=== PATIENT | male | born 1985 | race Caucasian/White ===

== ENCOUNTER 2016-09-02 11:43 | Emergency (ER) | payer OTHER ==
[~2016-09-02] VITALS: Ht 167.6 cm; Wt 79.2 kg
[2016-09-02] MEDS ORDERED: ALBU17IN2 INH (11:52)
[2016-09-02] MEDS ORDERED: ADVA115A INH (11:52)
[2016-09-02] MEDS ORDERED: CLAR10CA3 PO (11:52)
[2016-09-02] MEDS ORDERED: MONT10TA2 PO (11:52)
[2016-09-02] MEDS ORDERED: IPRATROPIUM 0.5MG/ALBUTEROL 2.5MG INH SOL UD 3ML (DUONEB)(J7620) NEB ONE (13:15)
[2016-09-02] MEDS ORDERED: predniSONE 20 MG TAB PO ONE (13:15)
[2016-09-02 13:48] VITALS: BP 121/71
[2016-09-02] MEDS ORDERED: PRED20TA PO (13:52)
--- NOTE | 2016-09-03 08:00 | REP ---
Chest x-ray: Two views. History: Cough and congestion. Comparison study: No comparison study. Findings: The lungs are well inflated and free of infiltrate. The pleural angles are sharp. The heart size is normal. Pulmonary vasculature is not increased. No significant bony abnormality is seen. Impression: Negative chest x-ray. Signed by Ernst Terrell MD 09/03/2016 09:00 A
== END 2016-09-02 13:59 | disposition home or self-care (01) ==
LOC: M ED 12:40
DX: J45.901 Unspecified asthma with (acute) exacerbation (principal); Z79.899 Other long term (current) drug therapy

== ENCOUNTER 2016-09-15 15:15 | Inpatient (IN) | payer OTHER ==
[~2016-09-15] VITALS: Ht 167.6 cm; Wt 82.1 kg
[~2016-09-15 15:15] MED LIST: ADVA115A INH; ALBU17IN2 INH; CLAR10CA3 PO; MONT10TA2 PO; PRED20TA PO
[2016-09-15] MEDS: NS 1,000 ML IV SCH ×2 (16:00→20:25)
[2016-09-15 16:52] LABS: MEAN CORPUSCULAR HEMOGLOBIN 29.5 pg (27.0-33.0); MEAN CORPUSCULAR HGB CONC 33.7 g/dl (32.0-36.5); MEAN CORPUSCULAR VOLUME 87.4 fl (80.0-96.0); RED CELL DISTRIBUTION WIDTH 12.3 % (11.5-14.5)
[2016-09-15 17:15] LABS: ANION GAP 4 MEQ/L (8-16); BLOOD UREA NITROGEN 14 MG/DL (7-18); CALCIUM LEVEL 9.1 MG/DL (8.5-10.1); CARBON DIOXIDE LEVEL 29 MEQ/L (21-32); CHLORIDE LEVEL 111 MEQ/L (98-107); GLOMERULAR FILTRATION RATE > 60.0 (>60); GLUCOSE, FASTING 49 MG/DL (70-105); POTASSIUM SERUM 4.1 MEQ/L (3.5-5.1); SODIUM LEVEL 144 MEQ/L (136-145)
[2016-09-15] MEDS ORDERED: ISOVUE-370 76% 100ML VIAL (Q9967) As Ordered ONE (17:23)
--- NOTE | 2016-09-15 18:14 | REP ---
Clinical: Shortness of breath . Technique: Axial contrast enhanced images from the thoracic inlet to the upper abdomen using 100 ml Isovue 370 intravenous contrast material with multiplanar re-formations. Findings: Satisfactory enhancement of the pulmonary vasculature is achieved and extensive pulmonary emboli are identified in the right and left main pulmonary arteries extending into the bilateral lower lobe and left upper lobe pulmonary arteries. The lung johnson are relatively clear and without consolidation, atelectasis, pleural effusion. Tracheobronchial tree is patent. No pneumothorax. No adenopathy. Thoracic aorta and heart/pericardium are normal. Surrounding musculoskeletal structures are intact. Impression: Severe, extensive bilateral pulmonary emboli filling of the right and left main pulmonary arteries and extending into the bilateral lower lobe and left upper lobe pulmonary arteries. No pulmonary parenchymal consolidation/atelectasis or pleural effusion. Findings were immediately discussed with Venecia Coyle in the emergency department. Signed by Mack Tai MD 09/15/2016 06:07 P
[2016-09-15 19:02] LABS: INR 1.06
[2016-09-15] MEDS ORDERED: HEPARIN DRIP 25,000 UNITS in APPROPRIATE DILUENT 1 EA IV SCH (19:28)
[2016-09-15] MEDS ORDERED: HEPARIN SOD (PORCINE) 5000 UNITS/ML VIAL IV ONE (19:30)
[2016-09-15] MEDS ORDERED: FLON1SPR (20:34)
--- NOTE | 2016-09-15 21:00 | REPUSA ---
Clinical history: Pain, swelling. Findings: The right common femoral, superficial femoral, popliteal, and other deep venous structures compress normally and demonstrate normal color Doppler flow. Normal venous waveforms with augmentatio n are seen. On the left, the common femoral superficial femoral veins compress normally. There is echogenic nonoc clusive thrombus in the left popliteal vein. Normal venous waveforms are otherwise demonstrated. Impression: 1. Nonocclusive deep vein thrombosis of the left popliteal vein. 2. No evidence of deep vein thrombosis in the right femoral popliteal venous system.
--- NOTE | 2016-09-15 21:10 | HPEPDOC ---
General Date of Admission Sep 15, 2016 at 19:38 Chief Complaint The patient is a 31-year-old male admitted with a reason for visit of Acute Pulmonary Embolism. 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 [place] noted to have a O2 sat. of 90% with HR in the 160's, he was immediately transferred to [facility]. On exam he denied being currently SOB and appeared comfortable, non-labored, he stated he felt pretty well aside from a non-productive cough. He denied recent changes in bowel or urinary habits, denied fevers nor n/v. He has no other active complaints. The pt. denied a history of personal blood clots but admits to having a cousin who recently due to a "lung clot", he is not taking any exogenous hormones nor does he have a history of cancer, denies any prolonged periods of immobility recently. Home Medications Scheduled (Flonase Allergy Relief) 50 Mcg/Act Spr, 50 MCG NA DAILY, (Reported) Albuterol Sulfate (Proventil Hfa) 167 Puff/6.7 Gm Aers, 2 PUFFS INH DAILY, ( Reported) Loratadine (Claritin) 10 Mg Cap, 10 MG PO DAILY, (Reported) Montelukast Sodium (Montelukast Sodium) 10 Mg Tab, 10 MG PO DAILY, (Reported) Salmeterol/Fluticasone (Advair Hfa 115-21 Mcg/Act) 1 Aer Aer, 2 PUFF INH QAM, ( Reported) USING ONLY ONCE A DAY ALTHOUGH WRITTEN FOR BID Allergies Coded Allergies: No Known Allergies (Unverified , 09/02/16) Past Medical History Medical History no known medical hx Family History Significant Family History: No pertinent family hx Social History * Smoker: Denies Alcohol: Denies Drugs: denies Psychosocial History: No 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 Review of Symptoms Constitutional: Denies: Chills, Fever Eyes: Denies: Pain, Vision change ENT: Denies: Head Aches Skin: Denies: Rash Pulmonary: Reports: Dyspnea, Cough Cardiovascular: Denies: Chest Pain, Palpitations, Orthopnea, Edema Gastrointestinal: Denies: Nausea, Vomiting Genitourinary: Denies: Dysuria, Frequency Hematologic: Denies: Bruising, Bleeding Excessively Musculoskeletal: Denies: Neck Pain Neurological: Denies: Weakness Psych: Reports: Mood Normal Physical Examination General Exam: Positive: Alert, Cooperative, No Acute Distress Eye Exam: Positive: Conjunctiva & lids normal ENT Exam: Positive: Atraumatic Neck Exam: Positive: Supple Chest Exam: Positive: Clear to auscultation, Normal air movement, Negative: Rales, Rhonchi, Wheezing Heart Exam: Positive: Tachycardic, Normal S1, Normal S2 (rate around 107 BPM), Negative: Gallops, Murmurs Telemetry: Positive: No significant arrhythmia Abdomen Exam: Positive: Normal bowel sounds, Soft, Negative: Tenderness, Hepatospenomegaly, Mass Extremity Exam: Negative: Cyanosis, Edema Psych Exam: Positive: Mental status NL, Oriented x 3 Vital Signs Vital Signs Date Time Temp Pulse Resp B/P (MAP) Pulse Ox O2 Delivery O2 Flow Rate FiO2 09/15/16 20:15 98.0 102 20 108/71 (83) 97 Room Air Laboratory Data Labs 24H Laboratory Tests 2 09/15/16 16:23: Prothrombin Time 13.9, Prothromb Time International Ratio 1.06, Activated Partial Thromboplast Time 25.6L, Anion Gap 4L, Glomerular Filtration Rate > 60.0 , Blood Urea Nitrogen 14, Creatinine 1.10, Sodium Level 144, Potassium Level 4.1 , Chloride Level 111H, Carbon Dioxide Level 29, Calcium Level 9.1 09/15/16 20:01: 09/15/16 20:02: CBC/BMP Laboratory Tests 09/15/16 16:23 Red Blood Count 5.61, Mean Corpuscular Volume 87.4, Mean Corpuscular Hemoglobin 29.5, Mean Corpuscular Hemoglobin Concent 33.7, Red Cell Distribution Width 12.3 , Calcium Level 9.1 Problems (1) Pulmonary emboli Status: Acute Response to Treatment: Stable Problem Text: CTA shows extensive b/l PE filling of the right and left main pulmonary arteries and extending in the b/l lower lobe and left upper lobe pulmonary arteries, no pulmonary parenchymal consolidation/atelectasis of pleural effusion Heparin bolus and IV drip initiated Will discuss with pt. preference of Coumadin vs oral AG, to begin tomorrow. Pt. hemodynamically stable, slight tachycardia at 107 BPM when being examined, denied SOB will hold of O2 orders for now, saturation 95% on room air (2) DVT prophylaxis Status: Acute Response to Treatment: Stable Problem Text: SCD TEDS Plan / VTE VTE Prophylaxis Ordered?: Yes GME ATTESTATION GME ATTESTATION My preceptor for this patient encounter was physically present in the building during the encounter and was fully available. As needed, all aspects of the patient interview, examination, medical decision making process, and medical care plan development were reviewed and approved by the preceptor. Preceptor is aware and concurs with the plan as stated in the body of this note and will attest to such by his/her cosignature. 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 He states it is worse with ambulation and has been getting progressively worse since that time. He states he came to our facility a couple weeks ago and [place] and was diagnosed with asthma and an URI which he received steroids and albuterol for, he states these interventions "kind of helped" but he has still felt SOB and when he was seen in our facility a couple weeks ago, he claims he also had some chest pressure. He denied any fever, nausea or vomiting, nor change in bowel or urinary habits. He states he currently feels fine and is not SOB. He has no other active complaints. RAINER SIMS DO Sep 15, 2016 21:10
[2016-09-15 22:45] VITALS: BP 126/76
[2016-09-15] MEDS ORDERED: HEPARIN SOD (PORCINE) 5000 UNITS/ML VIAL IV PRN (23:15)
[2016-09-15 23:41] LABS: MEAN CORPUSCULAR HEMOGLOBIN 29.2 pg (27.0-33.0); MEAN CORPUSCULAR VOLUME 88.6 fl (80.0-96.0); RED CELL DISTRIBUTION WIDTH 12.6 % (11.5-14.5); WHITE BLOOD COUNT 8.9 K/mm3 (4.0-10.0)
[2016-09-16 04:00] VITALS: BP 123/71
[2016-09-16 05:29] LABS: BASO % 0.5 % (0.0-1.0); EOS # 0.1 K/mm3 (0.0-0.50); EOS % 1.7 % (0.0-3.0); LARGE UNSTAINED CELL # 0.2 K/mm3 (0.0-0.4); LARGE UNSTAINED CELL % 1.9 % (0.0-4.0); LYMPH # 4.7 K/mm3 (1.5-4.5); LYMPH % 57.4 % (24.0-44.0); MEAN CORPUSCULAR HEMOGLOBIN 29.8 pg (27.0-33.0); MEAN CORPUSCULAR HGB CONC 33.7 g/dl (32.0-36.5); MEAN CORPUSCULAR VOLUME 88.5 fl (80.0-96.0); MONO # 0.4 K/mm3 (0.0-0.8); MONO % 4.5 % (0.0-5.0); NEUTROPHILS # 2.8 K/mm3 (1.8-7.7); PLATELET COUNT, AUTOMATED 164 k/mm3 (150-450); RED CELL DISTRIBUTION WIDTH 12.3 % (11.5-14.5); WHITE BLOOD COUNT 8.2 K/mm3 (4.0-10.0)
[2016-09-16 05:51] LABS: ANION GAP 6 MEQ/L (8-16); BLOOD UREA NITROGEN 11 MG/DL (7-18); CALCIUM LEVEL 8.1 MG/DL (8.5-10.1); CARBON DIOXIDE LEVEL 26 MEQ/L (21-32); CHLORIDE LEVEL 109 MEQ/L (98-107); CREATININE FOR GFR 0.96 MG/DL (0.70-1.30); GLOMERULAR FILTRATION RATE > 60.0 (>60); GLUCOSE, FASTING 94 MG/DL (70-105); POTASSIUM SERUM 4.2 MEQ/L (3.5-5.1); SODIUM LEVEL 141 MEQ/L (136-145)
[2016-09-16 08:00] VITALS: BP 109/79
--- NOTE | 2016-09-16 10:13 | IPNPDOC ---
Date Seen The patient was seen on 09/16/16. Progress Note SUBJECTIVE: Patient tells me that he is anxious regarding his health he is nervous acute distress reported that this was not caught sooner. He is also worried that his medical condition with place him on medical board with the [employer]. He denies shortness of breath lightheadedness dizziness nausea vomiting or diarrhea at rest OBJECTIVE PHYSICAL EXAMINATION: VITAL SIGNS: Please see below. GENERAL: Well-built muscular young man lying in bed at 30 angle he does not appear to be in any acute distress whatsoever HEENT: Pupils equally round reactive to light is moist mucous membranes elevation central venous pressure CARDIOVASCULAR: S1-S2 appears to be irregular mildly bradycardic noticed heart sounds appreciated. RESPIRATORY: Clear to auscultation bilaterally. No pleuritic pain with deep inspiration ABDOMINAL: Bowel sounds are present abdomen soft and nontender EXTREMITIES: Cyanosis or edema LABORATORY DATA: Please see below. MICROBIOLOGY: Please see below. IMAGING: CT angiography of the chest:Severe, extensive bilateral pulmonary emboli filling of the right and left main pulmonary arteries and extending into the bilateral lower lobe and left upper lobe pulmonary arteries. No pulmonary parenchymal consolidation/atelectasis or pleural effusion. Duplex of the lower extremity:1. Nonocclusive deep vein thrombosis of the left popliteal vein. 2. No evidence of deep vein thrombosis in the right femoral popliteal venous system Echocardiogram: Ordered and pending. DVT prophylaxis ordered?: Heparin drip ASSESSMENT AND PLAN: This is a 31-year-old man with extensive bilateral PE and DVT. PROBLEMS: 1. Extensive bilateral PE and DVT: The patient is started on a heparin drip on hypercoagulable workup was sent prior to initiation of this patient is hemodynamically stable he is not hypoxic or tachycardic at rest we'll continue him on heparin drip he may be better served by new her oral anticoagulant and transition of this in the near future. 2. Heart block: This is a young man who while on telemetry was noted to have 2 on transmitted P waves and then third was shortly thereafter he was asymptomatic when he was bradycardic with a positive greater than 3 seconds[address] I have asked Dr. Kinsey see the patient consultation and ordered echocardiogram will continue to monitor blood telemetry. The patient's father is reportedly a physician antiplateletwith him later on today when February otherwise me his phone number. DISPOSITION: We'll continue monitor on telemetry . [facility], [facility]&O[facility]ital Signs/I&O Vital Signs Date Time Temp Pulse Resp B/P (MAP) Pulse Ox O2 Delivery O2 Flow Rate FiO2 09/16/16 08:00 97.5 77 17 109/79 (89) 94 Room Air I&O- Last 24 Hours up to 6 AM 09/16/16 05:59 Intake Total 286.5 ml Balance 286.5 ml Laboratory Data 24H LABS Laboratory Tests 2 09/15/16 16:23: Prothrombin Time 13.9, Prothromb Time International Ratio 1.06, Activated Partial Thromboplast Time 25.6L, Anion Gap 4L, Glomerular Filtration Rate > 60.0 , Blood Urea Nitrogen 14, Creatinine 1.10, Sodium Level 144, Potassium Level 4.1 , Chloride Level 111H, Carbon Dioxide Level 29, Calcium Level 9.1 09/15/16 20:01: 09/15/16 20:02: 09/15/16 23:33: Activated Partial Thromboplast Time 95.8H, Total Creatine Kinase 273, Creatine Kinase MB 2.3, Creatine Kinase MB Relative Index 0.84, Troponin I 0.03 09/16/16 02:27: Activated Partial Thromboplast Time 84.2H 09/16/16 05:05: White Blood Count 8.2, Red Blood Count 5.33, Hemoglobin 15.9, Hematocrit 47.2, Mean Corpuscular Volume 88.5, Mean Corpuscular Hemoglobin 29.8, Mean Corpuscular Hemoglobin Concent 33.7, Red Cell Distribution Width 12.3, Platelet Count 164, Neutrophils (%) (Auto) 34.0L, Lymphocytes (%) (Auto) 57.4H, Monocytes (%) (Auto) 4.5, Eosinophils (%) (Auto) 1.7, Basophils (%) (Auto) 0.5, Neutrophils # (Auto) 2.8, Lymphocytes # (Auto) 4.7H, Monocytes # (Auto) 0.4, Eosinophils # (Auto) 0.1, Basophils # (Auto) 0.0, Large Unclassified Cells % 1.9 , Large Unclassified Cells # 0.2, Anion Gap 6L, Glomerular Filtration Rate > 60.0, Blood Urea Nitrogen 11, Creatinine 0.96, Sodium Level 141, Potassium Level 4.2, Chloride Level 109H, Carbon Dioxide Level 26, Calcium Level 8.1L, Total Creatine Kinase 250, Creatine Kinase MB 2.1, Creatine Kinase MB Relative Index 0.84, Troponin I 0.03 09/16/16 08:44: Activated Partial Thromboplast Time 84.8H CBC/BMP Laboratory Tests 09/15/16 16:23 Red Blood Count 5.61, Mean Corpuscular Volume 87.4, Mean Corpuscular Hemoglobin 29.5, Mean Corpuscular Hemoglobin Concent 33.7, Red Cell Distribution Width 12.3 , Calcium Level 9.1 09/15/16 23:34 Red Blood Count 4.90, Mean Corpuscular Volume 88.6, Mean Corpuscular Hemoglobin 29.2, Mean Corpuscular Hemoglobin Concent 33.0, Red Cell Distribution Width 12.6 09/16/16 05:05 Red Blood Count 5.33, Mean Corpuscular Volume 88.5, Mean Corpuscular Hemoglobin 29.8, Mean Corpuscular Hemoglobin Concent 33.7, Red Cell Distribution Width 12.3 , Calcium Level 8.1 L, Neutrophils (%) (Auto) 34.0 L, Lymphocytes (%) (Auto) 57.4 H, Monocytes (%) (Auto) 4.5, Eosinophils (%) (Auto) 1.7, Basophils (%) ( Auto) 0.5, Neutrophils # (Auto) 2.8, Lymphocytes # (Auto) 4.7 H, Monocytes # ( Auto) 0.4, Eosinophils # (Auto) 0.1, Basophils # (Auto) 0.0, Total Creatine Kinase 250 Microbiology Microbiology 09/16/16 Stool Occult Blood (CARLA), Received Pending KASIA ESPINAL MD Sep 16, 2016 10:13
[2016-09-16 12:00] VITALS: BP 128/81
--- NOTE | 2016-09-16 13:05 | CR ---
DATE OF CONSULTATION: 09/16/2016 Dr. Silvestre has asked me to see Mr. Abarca for pulmonary embolism and transient AV block. 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 He reports complaints of dyspnea on exertion since approximately April 2016. He was initially diagnosed with asthma and treated accordingly. He tells me that his condition has improved, and he actually felt almost back to normal but then in approximately July 2016, he started to be short of breath again. He was at his baseline in excellent physical shape but all the sudden, he started having problems climbing two or three flights of stairs. He looked for attention again and was tentatively diagnosed with asthma. He was prescribed some bronchodilators and prednisone taper and again, his condition transiently improved. But then he got more short of breath again and he eventually came to emergency room yesterday after he was evaluated on post and was found to be tachycardiac and hypoxic. CT angiography of the chest revealed extensive bilateral pulmonary emboli with dilatation of pulmonary arteries. He was started on intravenous (IV) heparin and admitted for further care. Overnight, while monitored on telemetry, he had episodes of AV block. He had several nonconducted P-waves with overall longest pause slightly over 3 seconds. He was asymptomatic and sleeping during the occurrence. He had one episode like that and then he had several episodes when he had 2:1 block that lasted only two cardiac cycles each. This morning he tells me he feels comfortable in bed, as long as he does not do anything has no symptoms. He has had nonproductive cough and initially in April, he remembers that he had burning retrosternal chest discomfort but has not had any similar symptoms lately. He denies any syncope or near syncope. There has been no recent injury, immobilization or prolonged travel. He does believe that he has several episodes of what looked like respiratory infection but nothing unusual. OUTPATIENT MEDICATIONS: He takes several medications for asthma, specifically albuterol, Flonase, loratadine, montelukast and Advair. SOCIAL HISTORY: The patient is active duty for over 4 years. He is originally from [place] but has lived in the [place] for many years. He never smoked. Does not drink and denies any drug use. FAMILY HISTORY: Father has type 2 diabetes. Mother has been healthy. One of his maternal cousins from pulmonary emboli. REVIEW OF SYSTEMS: He denies any recent fever, chills, nausea, vomiting, diarrhea. No history of bleeding problems. He has had mostly nonproductive cough, shortness of breath as per history of present illness. No recent chest pain, syncope. He was told that he probably has sleep apnea but in the past refused evaluation. No genitourinary symptoms. No peripheral edema. No skin lesions. The rest of review of system is negative. LABORATORY: CBC is normal. Basic metabolic panel is also normal. He had two sets of cardiac enzymes that are normal. PTT has been in therapeutic range since yesterday evening. CT angiography of the chest as per history of present illness. ECG from yesterday at 2339 at night reveals sinus rhythm with ventricular rate 79 beats per minute. There are small Q-waves inferiorly with ST elevation approximately 1 mm in leads II, III and aVF and there are T-wave inversions in leads V1, V2. There are also nonspecific repolarization abnormalities in leads V3 to V6. ASSESSMENT AND PLAN: Mr. Abarca is a 31-year-old active duty who has had symptoms of principally exertional dyspnea since April and now has evidence for massive bilateral pulmonary embolism. Last night, he had an episode of transient AV block, likely related to the strain from pulmonary embolism, even though I would also consider possibility of concomitant sleep apnea. Currently, I will obtain followup ECG. Will obtain an echocardiogram to get an idea how is his pulmonary artery pressure and strain on the right ventricle. Finally, I spoke with the patient that it is expected that he will spend at least several days in the hospital before he can be discharged. At this point, I would continue IV heparin and when we see improvement in hemodynamics, we will transition him to one of the novel anticoagulants (NOACs). PREMA
--- NOTE | 2016-09-16 13:22 | ECHO ---
DATE OF STUDY: 09/16/2016 TWO-DIMENSIONAL ECHOCARDIOGRAM REFERRING PHYSICIAN: Dr. Silvestre INDICATION: Pulmonary embolism, cardiac dysrhythmia. The patient measures 66 inches and weighs 182 pounds. DIMENSIONS: IVS 1.1 LV 3.9 LVPW 1.2 LA 3.2 Aorta 3.6 Ascending aorta 3.2. RV at the level of aortic valve from parasternal long chamber view 3.7 cm RV at the base from apical four-chamber view 4.5 cm LV systolic 2.6cm Pulmonary artery at the level of pulmonic valve 3.1 cm. FINDINGS: This study is of good technical quality. The patient is in sinus rhythm. Left ventricle is of normal size and contractility with estimated EF approximately 65%. There is a D shape to interventricular septum in systole as well as in diastole indicative of right ventricular volume and pressure overload. All four cardiac valves are reasonably well seen and appear normal. Right ventricle is dilated and hypokinetic. Both atria appear grossly normal. No pericardial effusion is noted. Inferior vena cava is dilated and there is no appreciable collapse with respiration indicative of high central venous pressure. Aortic root, aortic arch and visualized segment of abdominal aorta appear normal. Doppler interrogation reveals no aortic stenosis or insufficiency. There is trace mitral insufficiency and trace tricuspid insufficiency. Calculated pulmonary artery pressure is at least in high 40s low 50s which would indicate moderate pulmonary hypertension, but the quality of TR jet is poor and I suspect that pulmonary artery pressure is even higher. Pulmonic valve is functionally competent. Mitral inflow pattern and tissue Doppler imaging of mitral annulus reveal normal diastolic function of left ventricle. CONCLUSIONS: 1. Study is of good technical quality. 2. Normal LV size with preserved LV systolic function and preserved diastolic function. 3. Dilated hypokinetic right ventricle. 4. No significant valvular disease. 5. High central venous pressure. 6. At least moderate and probably higher pulmonary hypertension. COMMENT: SBE prophylaxis is not recommended. MTDD
--- NOTE | 2016-09-16 14:51 | ECGEPIP ---
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
--- NOTE | 2016-09-16 14:56 | ECGEPIP ---
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
[2016-09-16 16:00] VITALS: BP 128/84
[2016-09-16] MEDS ORDERED: SLF 3 ML SYR IV PRN (16:00)
[2016-09-16] MEDS ORDERED: ACETAMINOPHEN TAB 650MG DOSE (2X325MG) PO PRN (18:45)
[2016-09-16 20:00] VITALS: BP 134/77
[2016-09-16] MEDS: HEPARIN DRIP 25,000 UNITS in APPROPRIATE DILUENT 1 EA IV SCH (20:41)
[2016-09-16] MEDS: SLF 3 ML SYR IV SCH (20:43)
[2016-09-17] VITALS (7 sets, daily range): BP systolic 114–131; BP diastolic 72–83
[2016-09-17] MEDS: SLF 3 ML SYR IV SCH ×3 (05:24→21:58)
[2016-09-17 06:08] LABS: BASO % 0.7 % (0.0-1.0); EOS # 0.2 K/mm3 (0.0-0.50); EOS % 2.1 % (0.0-3.0); LARGE UNSTAINED CELL # 0.1 K/mm3 (0.0-0.4); LARGE UNSTAINED CELL % 1.6 % (0.0-4.0); LYMPH # 4.4 K/mm3 (1.5-4.5); MEAN CORPUSCULAR HEMOGLOBIN 30.1 pg (27.0-33.0); MEAN CORPUSCULAR HGB CONC 34.3 g/dl (32.0-36.5); MEAN CORPUSCULAR VOLUME 87.7 fl (80.0-96.0); MONO # 0.4 K/mm3 (0.0-0.8); NEUTROPHILS # 2.5 K/mm3 (1.8-7.7); NEUTROPHILS % 33.7 % (36.0-66.0); PLATELET COUNT, AUTOMATED 163 k/mm3 (150-450); RED CELL DISTRIBUTION WIDTH 12.3 % (11.5-14.5); WHITE BLOOD COUNT 7.5 K/mm3 (4.0-10.0)
[2016-09-17 06:13] LABS: ANION GAP 6 MEQ/L (8-16); BLOOD UREA NITROGEN 13 MG/DL (7-18); CALCIUM LEVEL 8.9 MG/DL (8.5-10.1); CARBON DIOXIDE LEVEL 28 MEQ/L (21-32); CHLORIDE LEVEL 105 MEQ/L (98-107); CREATININE FOR GFR 0.98 MG/DL (0.70-1.30); GLOMERULAR FILTRATION RATE > 60.0 (>60); GLUCOSE, FASTING 90 MG/DL (70-105); SODIUM LEVEL 139 MEQ/L (136-145)
--- NOTE | 2016-09-17 10:41 | IPNPDOC ---
Date Seen The patient was seen on 09/17/16. Progress Note SUBJECTIVE: Patient tells me that he is feeling beter today, and that he was able to walk yesterday evening and did have the same shortness of breath which he came in with. He denies other complaints, but continues to worry about his ability to stay in the which is what he wants to do very much despite any medical illnesses. OBJECTIVE PHYSICAL EXAMINATION: VITAL SIGNS: Please see below. GENERAL: Well-built muscular young sitting up in bed at 30 angle he does not appear to be in any acute distress whatsoever HEENT: Pupils equally round reactive to light is moist mucous membranes elevation central venous pressure CARDIOVASCULAR: S1-S2 appears to be regularno other heart sounds appreciated. RESPIRATORY: Clear to auscultation bilaterally. No pleuritic pain with deep inspiration ABDOMINAL: Bowel sounds are present abdomen soft and nontender EXTREMITIES: Cyanosis or edema LABORATORY DATA: Please see below. MICROBIOLOGY: Please see below. IMAGING: CT angiography of the chest:Severe, extensive bilateral pulmonary emboli filling of the right and left main pulmonary arteries and extending into the bilateral lower lobe and left upper lobe pulmonary arteries. No pulmonary parenchymal consolidation/atelectasis or pleural effusion. Duplex of the lower extremity:1. Nonocclusive deep vein thrombosis of the left popliteal vein. 2. No evidence of deep vein thrombosis in the right femoral popliteal venous system Echocardiogram: 1. Study is of good technical quality. 2. Normal LV size with preserved LV systolic function and preserved diastolic function. 3. Dilated hypokinetic right ventricle. 4. No significant valvular disease. 5. High central venous pressure. 6. At least moderate and probably higher pulmonary hypertension. DVT prophylaxis ordered?: Heparin drip ASSESSMENT AND PLAN: This is a 31-year-old man with extensive bilateral PE and DVT. PROBLEMS: 1. Extensive bilateral PE and DVT: The patient is started on a heparin drip on hypercoagulable workup was sent prior to initiation of this patient is hemodynamically stable he is not hypoxic or tachycardic at rest we'll continue him on heparin drip he may be better served by new her oral anticoagulant and transition of this in the near future. I did speak with his father who is a physician in [place] and did update him, all questions answered to the satisfaction of both the patient and his father. 2. Heart block: This is a young man continues to have pauses, >6s this AM asymptomatic while sleeping. Dr. Kinsey feels this is likely related to RV strain and PE. I hope with continued treatment these will happen less frequently , I have notified Dr. Kinsey this AM about the longer pause. It remains to be seen if he needs a permanent pacemaker to be placed. DISPOSITION: We'll continue monitor closely on telemetry. VS, I&O, 24H, Fishbone Vital Signs/I&O Vital Signs Date Time Temp Pulse Resp B/P (MAP) Pulse Ox O2 Delivery O2 Flow Rate FiO2 09/17/16 08:00 97.2 75 19 126/83 (97) 100 Room Air I&O- Last 24 Hours up to 6 AM 09/17/16 06:00 Intake Total 1618.6 ml Output Total 1875 ml Balance -256.4 ml Laboratory Data 24H LABS Laboratory Tests 2 09/16/16 11:15: Total Creatine Kinase 215, Creatine Kinase MB 2.0, Creatine Kinase MB Relative Index 0.93, Troponin I < 0.02# 09/17/16 05:00: Activated Partial Thromboplast Time 82.4H 09/17/16 05:01: White Blood Count 7.5, Red Blood Count 5.38, Hemoglobin 16.2, Hematocrit 47.1, Mean Corpuscular Volume 87.7, Mean Corpuscular Hemoglobin 30.1, Mean Corpuscular Hemoglobin Concent 34.3, Red Cell Distribution Width 12.3, Platelet Count 163, Neutrophils (%) (Auto) 33.7L, Lymphocytes (%) (Auto) 57.0H, Monocytes (%) (Auto) 5.0, Eosinophils (%) (Auto) 2.1, Basophils (%) (Auto) 0.7, Neutrophils # (Auto) 2.5, Lymphocytes # (Auto) 4.4, Monocytes # (Auto) 0.4, Eosinophils # (Auto) 0.2, Basophils # (Auto) 0.0, Large Unclassified Cells % 1.6 , Large Unclassified Cells # 0.1, Anion Gap 6L, Glomerular Filtration Rate > 60.0, Blood Urea Nitrogen 13, Creatinine 0.98, Sodium Level 139, Potassium Level 4.0, Chloride Level 105, Carbon Dioxide Level 28, Calcium Level 8.9 CBC/BMP Laboratory Tests 09/17/16 05:01 Red Blood Count 5.38, Mean Corpuscular Volume 87.7, Mean Corpuscular Hemoglobin 30.1, Mean Corpuscular Hemoglobin Concent 34.3, Red Cell Distribution Width 12.3 , Neutrophils (%) (Auto) 33.7 L, Lymphocytes (%) (Auto) 57.0 H, Monocytes (%) ( Auto) 5.0, Eosinophils (%) (Auto) 2.1, Basophils (%) (Auto) 0.7, Neutrophils # ( Auto) 2.5, Lymphocytes # (Auto) 4.4, Monocytes # (Auto) 0.4, Eosinophils # (Auto ) 0.2, Basophils # (Auto) 0.0, Calcium Level 8.9 Microbiology Microbiology 09/16/16 Stool Occult Blood (CARLA) - Final, Complete KASIA ESPINAL MD Sep 17, 2016 10:41
--- NOTE | 2016-09-17 11:40 | IPN ---
DATE: 09/17/2016 Mr. Abarca had a good day yesterday. He tells me that he feels a bit better today, even though he was not overly symptomatic yesterday either. He is not short of breath at rest and he does not get shortness of breath walking to the bathroom. At night he had an episode of transient high degree AV block with pause just little over 7 seconds. It was immediately recovered into sinus rhythm with normal AV conduction. It seems very suspicious that this was related to sleep apnea. He obviously was asymptomatic when he was woken up by the staff, but he slept well and did not have any other problems. Vital signs this morning: blood pressure 126/83, heart rate 60s to 80s rarely 90s. He is afebrile. Saturation is 100% on room air. His fluid balance yesterday was slightly negative. Weight has not been documented today. He is alert and oriented and appropriate. His JVP is not elevated by my physical exam. Lungs are clear to auscultation with good air movement. Heart: Exam reveals regular rhythm. There is today fairly or easier to hear murmur just left from the sternal border not more than 1 or 2 out of 6 intensity. I do not appreciate gallop. Abdomen is soft, nontender. There is no peripheral edema. Peripheral pulses are good quality and neurologically he is intact. LABORATORY: He has a normal CBC, normal basic metabolic panel, normal three sets of cardiac enzymes. His PTT has been consistently therapeutic and the electrocardiogram yesterday afternoon still reveals unchanged inferior wall Q-waves, slightly elevated ST-segment inferiorly and precordial T-wave inversions in leads V1-V3. Echocardiogram does reveal evidence for dilated and hypokinetic right ventricle. The pulmonary artery pressure was felt to be at least moderately elevated, but the quality of TR jet was not good and consequently is it possible that pulmonary artery pressure is even higher than this. 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 He has had intermittent problems with dyspnea since April of this year and eventually was diagnosed with massive bilateral pulmonary emboli including visible thrombi in both main pulmonary arteries. He responded favorably to administration of IV heparin and is neither hypoxic nor short of breath at rest at this point. I will plan to use at least a couple of three more days of heparin before transitioning him to oral medications. His separate problems are episodes of nocturnal bradycardia. He had an episode yesterday just a little over 3 seconds, (related to AV block and not a sinus arrest), the episode last night was over 7 seconds. This is certainly very worrisome. I do foresee that he likely has underlying obstructive sleep apnea, we will obtain overnight oximetry tonight. Because he is asymptomatic and during the day he has not had any episodes of bradycardia, I do not believe that this constitutes unequivocal indication for permanent pacemaker placement. He is not going home yet and we will continue monitoring the patient in the hospital, but if we see ongoing similar problems it is possible that pacemaker placement will be necessary. PREMA
--- NOTE | 2016-09-17 13:53 | ECGEPIP ---
Stationary ECG Study [facility] Test Date: 2016-09-17 Pat Name: MAURILIO ACEVEDO Department: Room: [place] [address] Gender: M [employer]: : 1985 Requested By: Damaso Kinsey Order Number: [id number] Reading MD: Damaso Kinsey Measurements Intervals [place] Rate: 67 P: 58 [place]: 213 QRS: 21 QRSD: 89 T: 44 QT: 394 QTc: 416 Interpretive Statements SINUS RHYTHM WITH FIRST DEGREE AV BLOCK ST ELEVATION, PROBABLY EARLY REPOLARIZATION, CONSIDER IWMI T-WAVE ABNORMALITY V1-V3, CONSIDER ANTERIOR ISCHEMIA, RV STRAIN MINIMAL CHANGE SINCE 09/16/16 Electronically Signed On 09-17-2016 13:52:48 EDT by Damaso Kinsey
[2016-09-17] MEDS: HEPARIN DRIP 25,000 UNITS in APPROPRIATE DILUENT 1 EA IV SCH (21:57)
[2016-09-18] VITALS (7 sets, daily range): BP systolic 119–139; BP diastolic 66–79
[2016-09-18] MEDS: SLF 3 ML SYR IV SCH ×3 (05:08→22:34)
[2016-09-18 06:16] LABS: BASO % 0.7 % (0.0-1.0); EOS # 0.2 K/mm3 (0.0-0.50); EOS % 2.2 % (0.0-3.0); LARGE UNSTAINED CELL # 0.1 K/mm3 (0.0-0.4); LARGE UNSTAINED CELL % 1.8 % (0.0-4.0); MEAN CORPUSCULAR HEMOGLOBIN 29.4 pg (27.0-33.0); MEAN CORPUSCULAR HGB CONC 33.5 g/dl (32.0-36.5); MEAN CORPUSCULAR VOLUME 87.8 fl (80.0-96.0); MONO # 0.4 K/mm3 (0.0-0.8); MONO % 4.8 % (0.0-5.0); NEUTROPHILS # 3.3 K/mm3 (1.8-7.7); NEUTROPHILS % 41.6 % (36.0-66.0); PLATELET COUNT, AUTOMATED 176 k/mm3 (150-450); RED CELL DISTRIBUTION WIDTH 12.4 % (11.5-14.5); WHITE BLOOD COUNT 7.8 K/mm3 (4.0-10.0)
[2016-09-18 06:38] LABS: ANION GAP 8 MEQ/L (8-16); CALCIUM LEVEL 9.1 MG/DL (8.5-10.1); CARBON DIOXIDE LEVEL 27 MEQ/L (21-32); CHLORIDE LEVEL 104 MEQ/L (98-107); CREATININE FOR GFR 1.02 MG/DL (0.70-1.30); GLOMERULAR FILTRATION RATE > 60.0 (>60); GLUCOSE, FASTING 91 MG/DL (70-105); POTASSIUM SERUM 4.1 MEQ/L (3.5-5.1); SODIUM LEVEL 139 MEQ/L (136-145)
[2016-09-18] MEDS: HEPARIN DRIP 25,000 UNITS in APPROPRIATE DILUENT 1 EA IV SCH ×3 (06:47→23:57)
[2016-09-18 06:54] LABS: BLOOD UREA NITROGEN 20 MG/DL (7-18)
--- NOTE | 2016-09-18 09:30 | IPN ---
DATE: 09/18/2016 Mr. Abarca is feeling well. He denies any dyspnea or chest discomfort or palpitations at rest. His telemetry monitoring overnight revealed only one pause. He had only one unconducted atrial contraction so there has been improvement in this regard from yesterday as well. Vital signs: Blood pressure 123/79, heart rate has been in 60s and 70s, he is afebrile. Saturation is 100% on room air. He is alert and oriented and appropriate. The JVP is not up. Lungs are clear to auscultation with good air movement. Heart exam reveals regular rhythm. I do not appreciate any gallop. There is still faint murmur at the left sternal border. Abdomen is soft, nontender. No peripheral edema. Good peripheral pulses. Neurologically intact. LABORATORY: CBC is normal. Basic metabolic panel is normal as well. TSH was 2.8. PTT is in therapeutic range. The hypercoagulable panel is still pending. I also ordered NATHEN yesterday because of his transient AV block. ASSESSMENT/PLAN: Mr. Abarca is 31-year-old man who presented with massive pulmonary embolism and was also found two episodes of bradycardia during the night with high degree AV block that was transient and I suspect due to underlying obstructive sleep apnea (ALEXANDRA). It is likely that the pulmonary embolism contributed as well. So far he is clinically improving. I would advocate to use heparin for one more day, mostly to monitor him overnight to make sure he does not have any significant bradycardia. If none is seen, he can be transitioned to one of the NOACs tomorrow. My general recommendation would be to use Apixaban 10 mg twice a day as a standard treatment for pulmonary emboli. He had overnight oximetry last night and the results are pending at this point. I am hoping that everything will go well and he will be able to be discharged on Sunday or .
--- NOTE | 2016-09-18 11:47 | IPNPDOC ---
Date Seen The patient was seen on 09/18/16. Progress Note SUBJECTIVE: Patient tells me that he is feeling well, he h as no complaints. OBJECTIVE PHYSICAL EXAMINATION: VITAL SIGNS: Please see below. GENERAL: Well-built muscular young sitting up in bed at 30 angle he does not appear to be in any acute distress whatsoever HEENT: Pupils equally round reactive to light is moist mucous membranes elevation central venous pressure CARDIOVASCULAR: S1-S2 appears to be regular no other heart sounds appreciated. RESPIRATORY: Clear to auscultation bilaterally. No pleuritic pain with deep inspiration ABDOMINAL: Bowel sounds are present abdomen soft and nontender EXTREMITIES: Cyanosis or edema LABORATORY DATA: Please see below. MICROBIOLOGY: Please see below. IMAGING: CT angiography of the chest:Severe, extensive bilateral pulmonary emboli filling of the right and left main pulmonary arteries and extending into the bilateral lower lobe and left upper lobe pulmonary arteries. No pulmonary parenchymal consolidation/atelectasis or pleural effusion. Duplex of the lower extremity:1. Nonocclusive deep vein thrombosis of the left popliteal vein. 2. No evidence of deep vein thrombosis in the right femoral popliteal venous system Echocardiogram: 1. Study is of good technical quality. 2. Normal LV size with preserved LV systolic function and preserved diastolic function. 3. Dilated hypokinetic right ventricle. 4. No significant valvular disease. 5. High central venous pressure. 6. At least moderate and probably higher pulmonary hypertension. DVT prophylaxis ordered?: Heparin drip ASSESSMENT AND PLAN: This is a 31-year-old man with extensive bilateral PE and DVT and intermittent heart block. PROBLEMS: 1. Extensive bilateral PE and DVT: The patient is started on a heparin drip a hypercoagulable workup was sent prior to initiation. Will transition to eliquis tomorrow, eh should have min. 6mo of anticoagulation and if genetic testing positive consider life long therapy. 2. Heart block: This is a young man continues to have pauses although last night not as significant. I did speak with Dr. Gil who reviewed hsi over night pulse ox. She suspects ALEXANDRA and rec. sleep study but no significant hypoxia noted and noo emergent need for study. Dr. Kinsey's help is greatly appreciated, Lyme and NATHEN sent. If related to PE, ideally with treatment it should continue to improve, we will keep him and continue to monitor. DISPOSITION: We'll continue monitor closely on telemetry. VS, I&O, 24H, [facility] Vital Signs/I&O Vital Signs Date Time Temp Pulse Resp B/P (MAP) Pulse Ox O2 Delivery O2 Flow Rate FiO2 09/18/16 08:00 98.2 75 19 121/78 (92) 97 Room Air I&O- Last 24 Hours up to 6 AM 09/18/16 06:00 Intake Total 2397.4 ml Output Total 1675 ml Balance 722.4 ml Laboratory Data 24H LABS Laboratory Tests 2 09/18/16 05:58: White Blood Count 7.8, Red Blood Count 5.54, Hemoglobin 16.3, Hematocrit 48.6, Mean Corpuscular Volume 87.8, Mean Corpuscular Hemoglobin 29.4, Mean Corpuscular Hemoglobin Concent 33.5, Red Cell Distribution Width 12.4, Platelet Count 176, Neutrophils (%) (Auto) 41.6, Lymphocytes (%) (Auto) 49.0H, Monocytes (%) (Auto) 4.8, Eosinophils (%) (Auto) 2.2, Basophils (%) (Auto) 0.7, Neutrophils # (Auto) 3.3, Lymphocytes # (Auto) 4.0, Monocytes # (Auto) 0.4, Eosinophils # (Auto) 0.2, Basophils # (Auto) 0.0, Large Unclassified Cells % 1.8 , Large Unclassified Cells # 0.1, Activated Partial Thromboplast Time 63.0H, Anion Gap 8, Glomerular Filtration Rate > 60.0, Blood Urea Nitrogen 20#H, Creatinine 1.02, Sodium Level 139, Potassium Level 4.1, Chloride Level 104, Carbon Dioxide Level 27, Calcium Level 9.1, Thyroid Stimulating Hormone (TSH) 2.850 CBC/BMP Laboratory Tests 09/18/16 05:58 Red Blood Count 5.54, Mean Corpuscular Volume 87.8, Mean Corpuscular Hemoglobin 29.4, Mean Corpuscular Hemoglobin Concent 33.5, Red Cell Distribution Width 12.4 , Neutrophils (%) (Auto) 41.6, Lymphocytes (%) (Auto) 49.0 H, Monocytes (%) ( Auto) 4.8, Eosinophils (%) (Auto) 2.2, Basophils (%) (Auto) 0.7, Neutrophils # ( Auto) 3.3, Lymphocytes # (Auto) 4.0, Monocytes # (Auto) 0.4, Eosinophils # (Auto ) 0.2, Basophils # (Auto) 0.0, Calcium Level 9.1 Microbiology Microbiology 09/16/16 Stool Occult Blood (CARLA) - Final, Complete KASIA ESPINAL MD Sep 18, 2016 11:47
--- NOTE | 2016-09-18 11:48 | NOCOX ---
DATE OF SERVICE: 09/17/2016 to 09/18/2016 Nocturnal oximetry was performed from 09/17/2016 to 09/18/2016. Patient was on room air during the entire study. Resting oxygen saturation was 94% with a resting heart rate of 64. He had some variable oxygen saturations without significant hypoxia. Oxygen saturation ranged from 89% to 100%. Heart rate ranged from 38 to 99. The longest continuous time with an oxygen saturation less than 90% was 8 seconds. There was no time spent less than 88%. There is some variability of the oxygen saturation throughout the evening and variability in heart rate. IMPRESSION: Variable oxygen saturation without significant hypoxia that would require oxygen therapy. If there is suspicion of sleep apnea, I recommend formal inpatient in- lab polysomnogram due to his recent history of bradycardia. PREMA
[2016-09-19 04:45] VITALS: BP 122/68
[2016-09-19 05:52] LABS: BASO % 0.7 % (0.0-1.0); EOS # 0.2 K/mm3 (0.0-0.50); EOS % 2.2 % (0.0-3.0); LARGE UNSTAINED CELL # 0.2 K/mm3 (0.0-0.4); LARGE UNSTAINED CELL % 2.3 % (0.0-4.0); LYMPH # 3.5 K/mm3 (1.5-4.5); LYMPH % 46.5 % (24.0-44.0); MEAN CORPUSCULAR HEMOGLOBIN 30.6 pg (27.0-33.0); MEAN CORPUSCULAR HGB CONC 34.8 g/dl (32.0-36.5); MONO # 0.4 K/mm3 (0.0-0.8); MONO % 5.3 % (0.0-5.0); NEUTROPHILS # 3.2 K/mm3 (1.8-7.7); PLATELET COUNT, AUTOMATED 178 k/mm3 (150-450); RED CELL DISTRIBUTION WIDTH 12.3 % (11.5-14.5); WHITE BLOOD COUNT 7.5 K/mm3 (4.0-10.0)
[2016-09-19] MEDS: SLF 3 ML SYR IV SCH ×3 (06:00→21:19)
[2016-09-19 06:01] LABS: ANION GAP 9 MEQ/L (8-16); BLOOD UREA NITROGEN 21 MG/DL (7-18); CALCIUM LEVEL 9.3 MG/DL (8.5-10.1); CARBON DIOXIDE LEVEL 25 MEQ/L (21-32); CHLORIDE LEVEL 107 MEQ/L (98-107); CREATININE FOR GFR 0.95 MG/DL (0.70-1.30); GLOMERULAR FILTRATION RATE > 60.0 (>60); GLUCOSE, FASTING 86 MG/DL (70-105); SODIUM LEVEL 141 MEQ/L (136-145)
[2016-09-19 08:00] VITALS: BP 111/81
--- NOTE | 2016-09-19 11:06 | IPNPDOC ---
Date Seen The patient was seen on 09/19/16. Progress Note SUBJECTIVE: Patient tells me that he is feeling well, he denies SOB OBJECTIVE PHYSICAL EXAMINATION: VITAL SIGNS: Please see below. GENERAL: Well-built muscular young sitting up in bed at 30 angle he does not appear to be in any acute distress whatsoever, he is accompanied by his mother HEENT: Pupils equally round reactive to light is moist mucous membranes elevation central venous pressure CARDIOVASCULAR: S1-S2 appears to be regular no other heart sounds appreciated. RESPIRATORY: Clear to auscultation bilaterally. No pleuritic pain with deep inspiration ABDOMINAL: Bowel sounds are present abdomen soft and nontender EXTREMITIES: Cyanosis or edema LABORATORY DATA: Please see below. MICROBIOLOGY: Please see below. IMAGING: CT angiography of the chest: Severe, extensive bilateral pulmonary emboli filling of the right and left main pulmonary arteries and extending into the bilateral lower lobe and left upper lobe pulmonary arteries. No pulmonary parenchymal consolidation/atelectasis or pleural effusion. Duplex of the lower extremity:1. Nonocclusive deep vein thrombosis of the left popliteal vein. 2. No evidence of deep vein thrombosis in the right femoral popliteal venous system Echocardiogram: 1. Study is of good technical quality. 2. Normal LV size with preserved LV systolic function and preserved diastolic function. 3. Dilated hypokinetic right ventricle. 4. No significant valvular disease. 5. High central venous pressure. 6. At least moderate and probably higher pulmonary hypertension. Overnight Pulse Ox: Variable oxygen saturation without significant hypoxia that would require oxygen therapy. If there is suspicion of sleep apnea, I recommend formal inpatient in- lab DVT prophylaxis ordered?: Heparin drip ASSESSMENT AND PLAN: This is a 31-year-old man with extensive bilateral PE and DVT and intermittent heart block. PROBLEMS: 1. Extensive bilateral PE and DVT: The patient is started on a heparin drip a hypercoagulable workup was sent prior to initiation. Will transition to eliquis today, he should have min. of 6mo of anticoagulation and if genetic testing positive consider life long therapy. 2. Heart block: This is a young man continues to have pauses although last night not as significant and not as many. His pulse Ox is not suggestive of significant ALEXANDRA to attribute it entirely to this I feel. Dr. Kinsey's help is greatly appreciated, Lyme and NATHEN sent. If related to PE, ideally with treatment it should continue to improve, we will keep him and continue to monitor. DISPOSITION: We'll continue monitor closely on telemetry. VS, I&O, 24H, [facility] Vital Signs/I&O Vital Signs Date Time Temp Pulse Resp B/P (MAP) Pulse Ox O2 Delivery O2 Flow Rate FiO2 09/19/16 08:00 97.3 65 18 111/81 (91) 99 Room Air I&O- Last 24 Hours up to 6 AM 09/19/16 06:00 Intake Total 967.7 ml Output Total 950 ml Balance 17.7 ml Laboratory Data 24H LABS Laboratory Tests 2 09/18/16 12:48: Activated Partial Thromboplast Time 111.6H 09/18/16 20:01: Activated Partial Thromboplast Time 83.3H 09/19/16 01:53: Activated Partial Thromboplast Time 77.9H 09/19/16 05:36: White Blood Count 7.5, Red Blood Count 5.61, Hemoglobin 17.2, Hematocrit 49.3, Mean Corpuscular Volume 88.0, Mean Corpuscular Hemoglobin 30.6, Mean Corpuscular Hemoglobin Concent 34.8, Red Cell Distribution Width 12.3, Platelet Count 178, Neutrophils (%) (Auto) 43.0, Lymphocytes (%) (Auto) 46.5H, Monocytes (%) (Auto) 5.3H, Eosinophils (%) (Auto) 2.2, Basophils (%) (Auto) 0.7, Neutrophils # (Auto) 3.2, Lymphocytes # (Auto) 3.5, Monocytes # (Auto) 0.4, Eosinophils # (Auto) 0.2, Basophils # (Auto) 0.0, Large Unclassified Cells % 2.3 , Large Unclassified Cells # 0.2, Anion Gap 9, Glomerular Filtration Rate > 60.0 , Blood Urea Nitrogen 21H, Creatinine 0.95, Sodium Level 141, Potassium Level 4.0, Chloride Level 107, Carbon Dioxide Level 25, Calcium Level 9.3 CBC/BMP Laboratory Tests 09/19/16 05:36 Red Blood Count 5.61, Mean Corpuscular Volume 88.0, Mean Corpuscular Hemoglobin 30.6, Mean Corpuscular Hemoglobin Concent 34.8, Red Cell Distribution Width 12.3 , Neutrophils (%) (Auto) 43.0, Lymphocytes (%) (Auto) 46.5 H, Monocytes (%) ( Auto) 5.3 H, Eosinophils (%) (Auto) 2.2, Basophils (%) (Auto) 0.7, Neutrophils # (Auto) 3.2, Lymphocytes # (Auto) 3.5, Monocytes # (Auto) 0.4, Eosinophils # ( Auto) 0.2, Basophils # (Auto) 0.0, Calcium Level 9.3 Microbiology Microbiology 09/16/16 Stool Occult Blood (CARLA) - Final, Complete KASIA ESPINAL MD Sep 19, 2016 11:06
[2016-09-19 12:00] VITALS: BP 110/77
[2016-09-19 16:00] VITALS: BP 108/74
[2016-09-19 20:09] VITALS: BP 112/71
[2016-09-20 00:05] VITALS: BP 110/59
[2016-09-20 04:11] LABS: BASO # 0.1 K/mm3 (0.0-0.2); BASO % 0.8 % (0.0-1.0); EOS # 0.1 K/mm3 (0.0-0.50); EOS % 1.8 % (0.0-3.0); LARGE UNSTAINED CELL # 0.1 K/mm3 (0.0-0.4); LARGE UNSTAINED CELL % 1.6 % (0.0-4.0); LYMPH # 4.3 K/mm3 (1.5-4.5); LYMPH % 51.4 % (24.0-44.0); MEAN CORPUSCULAR HEMOGLOBIN 28.3 pg (27.0-33.0); MEAN CORPUSCULAR HGB CONC 32.4 g/dl (32.0-36.5); MEAN CORPUSCULAR VOLUME 87.6 fl (80.0-96.0); MONO # 0.4 K/mm3 (0.0-0.8); MONO % 5.3 % (0.0-5.0); NEUTROPHILS # 3.2 K/mm3 (1.8-7.7); NEUTROPHILS % 39.1 % (36.0-66.0); PLATELET COUNT, AUTOMATED 188 k/mm3 (150-450); RED CELL DISTRIBUTION WIDTH 12.3 % (11.5-14.5); WHITE BLOOD COUNT 8.1 K/mm3 (4.0-10.0)
[2016-09-20] MEDS: HEPARIN DRIP 25,000 UNITS in APPROPRIATE DILUENT 1 EA IV SCH (04:19)
[2016-09-20 04:20] VITALS: BP 110/76
[2016-09-20 04:30] LABS: ANION GAP 8 MEQ/L (8-16); BLOOD UREA NITROGEN 21 MG/DL (7-18); CALCIUM LEVEL 9.5 MG/DL (8.5-10.1); CARBON DIOXIDE LEVEL 25 MEQ/L (21-32); CHLORIDE LEVEL 103 MEQ/L (98-107); CREATININE FOR GFR 0.86 MG/DL (0.70-1.30); GLOMERULAR FILTRATION RATE > 60.0 (>60); GLUCOSE, FASTING 89 MG/DL (70-105); POTASSIUM SERUM 4.1 MEQ/L (3.5-5.1); SODIUM LEVEL 136 MEQ/L (136-145)
[2016-09-20] MEDS: SLF 3 ML SYR IV SCH (06:00)
[2016-09-20 08:00] VITALS: BP 111/80
--- NOTE | 2016-09-20 08:37 | IPN ---
DATE: 09/20/2016 Mr. Abarca has been feeling very well. He was able to ambulate on telemetry yesterday and he tells me that he did not feel short of breath at all. At night he continues to have occasional pauses but they have been improving, last night there were only two episodes where he had nonconductive P-wave. No prolonged pauses as well. VITAL SIGNS: Blood pressure 110/76, heart rate in 60s. He is afebrile. Saturation 97% on room air. Fluid balance yesterday approximately equal. 82.1 kg is his weight. He is alert and oriented and appropriate. His jugular venous pressure is not elevated. Lungs are clear to auscultation bilaterally. Heart exam reveals regular rhythm. I do not any longer appreciate a murmur that was apparent at his left sternal border. No gallop. Abdomen is soft. No tenderness. No hepatosplenomegaly. Extremities have no edema. Neurologically, he is intact. LABORATORY: He has normal CBC and normal basic metabolic panel. ASSESSMENT AND PLAN: Mr. Abarca is a 31-year-old man who presented with massive bilateral pulmonary embolism. He was for several days on IV heparin that was discontinued at 6 o'clock this morning and he will be started on 10 mg twice a day of apixaban. He should follow standard PE protocol with this medication. An echocardiogram revealed approximately moderate pulmonary hypertension. I intend to see him in followup on outpatient basis with an echocardiogram. I explained to him that in overwhelming majority of the patient's with treatment with anticoagulation will lead to normalization of pulmonary artery pressure. The second issue was nighttime bradycardia. His overnight oximetry was surprisingly only mildly abnormal. It is possible that some of that conduction system problem was related to RV strain. The trend has been in right direction and consequently I think that we can discharge the patient home. I will tentatively followup with event recorder or Holter monitor a few weeks down the road after a presumptive resolution of pulmonary embolism. I explained to him that he should avoid any truly strenuous activity for at least several weeks. But activities of daily living should be without any restrictions. I also believe he can drive, which was one of his questions. From my perspective, he can be discharged home today.
[2016-09-20] MEDS ORDERED: APIXABAN 5 MG TAB (ELIQUIS) PO SCH (09:00)
[2016-09-20] MEDS ORDERED: ELIQ5TAB PO (10:44)
[2016-09-21 10:12] LABS: Lyme Disease IgG/IgM Antibodie <0.91 ISR (0.00-0.90); Lyme Disease IgM Ab Quantitati <0.80 index (0.00-0.79)
--- NOTE | 2016-09-21 12:14 | DSES ---
DATE OF ADMISSION: 09/15/2016 DATE OF DISCHARGE: 09/20/2016 PRIMARY CARE PROVIDER: [facility] (Formerly [facility]) DISCHARGE DIAGNOSES: Bilateral pulmonary embolism affecting the right and left main pulmonary arteries and extending into the bilateral lower lobe and left upper lobe pulmonary arteries. Transient AV blocks likely related to strain from pulmonary embolism. Moderate to severe pulmonary hypertension with high central venous pressure and dilated hypokinetic right ventricle. Nonocclusive deep venous thrombosis (DVT) of the left popliteal vein. Possible Asthma DISCHARGE MEDICATIONS: - Eliquis 10 mg twice a day for 7 days then 5 mg twice a day to continue - Albuterol sulfate 2 puffs inhalation daily - Flonase nasal spray - loratadine 10 mg daily - montelukast 10 mg daily - salmeterol/fluticasone 2 puffs inhalation every a.m. HOSPITAL COURSE: This is a 31-year-old male who presented to the hospital with shortness of breath going on since April of 2015. 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 He was again seen at [facility] on the day of admission and was found to have an oxygen saturation of 90% and a heart rate of 160 so was immediately sent our emergency room. He had a CT angio done which showed bilateral massive pulmonary embolism involving both the right and left main arteries extending to both the lower lobe arteries as well as left upper lobe artery. Patient was also found to have non-occlusive DVT in the left popliteal vein. Patient was started on heparin infusion. During the hospitalization and telemetry unit patient was noted to have high degree AV blocks with the longest one being 7 seconds, patient was evaluated by cardiology and it was felt it was probably due to right ventricular strain from pulmonary embolism, however, he did also think patient may have underlying obstructive sleep apnea. Patient had a nocturnal pulse oximetry done here which showed variable oxygen saturation without any significant hypoxia that would require oxygen therapy and the suspicion for sleep apnea was extremely low as per the orthotic and prosthetic technician. However, as per the orthotic and prosthetic technician if still clinically it was felt might still have sleep apnea then patient should get a polysomnogram study as an outpatient. Patient's episodes of bradycardia improved in the last 2 days of hospitalization he had his blocks were almost resolved. Patient was subsequently switched from heparin to Eliquis, his shortness of breath improved significantly. On the day of discharge patient's vitals were stable. He was comfortable without any complaints. He was functionally close to his baseline and so the patient was discharged home in stable condition. PHYSICAL EXAMINATION: VITALS SIGNS: Temperature 97.5, pulse 73, respiratory rate 16. Blood pressure 111/80, pulse oximetry 100% on room air. GENERAL: Patient awake, alert, and oriented times three. Sitting up in bed in no acute distress. HEENT: Normal cephalic, atraumatic. Moist mucous membranes and anicteric eyes. CHEST: Clear to auscultation. CARDIOVASCULAR: S1, S2, regular. No murmur, rub, or gallop. ABDOMEN: Soft, nontender, bowel sounds present. EXTREMITIES: No edema. LABORATORY DATA: WBC 8.1, hemoglobin 16.4, platelet 188, sodium 136, potassium 4.1, chloride 103, bicarbonate 25, BUN 21, creatinine 0.8, glucose 89, calcium 9.5, TSH 2.85. Patient's hypercoagulable work-up has been ordered, but is still pending. DISPOSITION: Patient is discharged home in stable condition. DISCHARGE INSTRUCTIONS: Patient to followup with primary care provider at [facility] prior to joining active duty. At present patient is advised light duty and to avoid full physical activity. Regular diet. Addendum: prothrombin gene mutation negative, Factor V Leiden negative, protein c and protein s activity normal , antithrombin 3 activity normal, antiphospholipid antibodies are negative. , gerry negative MTDD
== END 2016-09-20 12:55 | disposition home or self-care (01) | DRG 299 ==
LOC: M ED 15:15 → M ED INP 19:38 → M PCU 22:39
PROVIDERS: ADMIT Hospitalist; ATTEND Internal Medicine Nephrology
DX: I82.432 Acute embolism and thrombosis of left popliteal vein (principal); I26.99 Other pulmonary embolism without acute cor pulmonale; I27.2 Other secondary pulmonary hypertension; Z79.899 Other long term (current) drug therapy; J45.909 Unspecified asthma, uncomplicated; G47.33 Obstructive sleep apnea (adult) (pediatric); I44.30 Unspecified atrioventricular block

== ENCOUNTER → 2016-10-10 | Outpatient (CLI) | payer OTHER ==
[~2016-10-10] MED LIST changes: +ELIQ5TAB PO; +FLON1SPR; +METHACHOLINE KIT (J7674) INH ONE
== END ==
LOC: M CARPUL 06:47
PROVIDERS: ATTEND Nurse Practitioner Adult Health
DX: R05 Cough (principal)

== ENCOUNTER 2016-10-21 13:28 | Emergency (ER) | payer OTHER ==
[~2016-10-21] VITALS: Ht 167.6 cm; Wt 81.8 kg
[~2016-10-21 13:28] MED LIST changes: -METHACHOLINE KIT (J7674) INH ONE
[2016-10-21 13:29] VITALS: BP 133/69
[2016-10-21] MEDS ORDERED: ELIQ5TAB PO (14:39)
== END 2016-10-21 15:01 | disposition home or self-care (01) ==
LOC: M ED 13:28
DX: Z76.0 Encounter for issue of repeat prescription (principal); Z86.711 Personal history of pulmonary embolism; J30.2 Other seasonal allergic rhinitis; Z79.899 Other long term (current) drug therapy

== ENCOUNTER → 2016-12-07 | Outpatient (REF) | payer OTHER | LOC: M LAB REF 14:18 | PROVIDERS: ATTEND Internal Medicine Medical Oncology | DX: I26.99 Other pulmonary embolism without acute cor pulmonale (principal) ==

== ENCOUNTER → 2016-12-19 | Outpatient (CLI) | payer OTHER ==
[~2016-12-19] MED LIST changes: +METHACHOLINE KIT (J7674) INH ONE
--- NOTE | 2016-12-19 08:19 | PFTRPT ---
Tech: April DUARTE RRT Age: 31 Sex: Male Race: Height: 66.00 Inches Weight: 170.00 Lbs BSA: 1.87 Diagnosis: R05 METHACHOLINE CHALLENGE REPORT: ORDERING PROVIDER: Feliciano Hurley MD DATE OF SERVICE: 12/19/16 INTERPRETATION: The study was of excellent technical quality. Under protocol, methacholine was administered. At a dose of 10 mg (63.875 CDUs), a 39% decline in the FEV1 was noted. The PC20 of 3.3 is significant. Flow rates returned to baseline post bronchodilator administration. IMPRESSION: Positive methacholine challenge study. MTDD
== END ==
LOC: M CARPUL 07:30
PROVIDERS: ATTEND Internal Medicine Pulmonary Disease
DX: R05 Cough (principal)
CPT/HCPCS: 94070; J7674

== ENCOUNTER → 2017-02-06 | Outpatient (REF) | payer OTHER ==
[~2017-02-06] MED LIST changes: -METHACHOLINE KIT (J7674) INH ONE
[2017-02-13 00:06] LABS: APTT 26.6 sec (.); Anticardiolipin Ab, IgA <10 APL (.); DRVTT Screen Seconds 43.3 sec (.); FACTOR VIII ACTIVITY 256 % (57-163)
== END ==
LOC: M LAB REF 13:48
PROVIDERS: ATTEND Internal Medicine Medical Oncology
DX: I26.99 Other pulmonary embolism without acute cor pulmonale (principal)

== ENCOUNTER → 2017-05-02 | Outpatient (CLI) | payer OTHER | LOC: M RAD 17:43 | DX: R22.42 Localized swelling, mass and lump, left lower limb (principal) | CPT/HCPCS: 93971 ==

== ENCOUNTER → 2017-05-08 | Outpatient (CLI) | payer OTHER ==
[~2017-05-08] MED LIST changes: -ADVA115A INH; -ALBU17IN2 INH; -CLAR10CA3 PO; -ELIQ5TAB PO; -FLON1SPR; +ISOVUE-370 76% 100ML VIAL (Q9967) As Ordered; -MONT10TA2 PO; -PRED20TA PO
== END ==
LOC: M RAD 15:25
DX: I26.99 Other pulmonary embolism without acute cor pulmonale (principal)
CPT/HCPCS: Q9967

== ENCOUNTER → 2017-05-09 | Outpatient (REF) | payer OTHER ==
[2017-05-09 17:56] LABS: D-DIMER QUANT < 270.0 ng/ml (<500)
[2017-05-19 00:07] LABS: F8 ACTIVITY FOR F8 PANEL 173 % (57-163); F8 ACTIVITY vWB FOR F8 PANEL 230 % (50-200); F8 ANTIGEN FOR F8 PANEL 325 % (50-200); INTERPRETATION: Note (.)
== END ==
LOC: M LAB REF 16:35
DX: I26.99 Other pulmonary embolism without acute cor pulmonale (principal); I82.90 Acute embolism and thrombosis of unspecified vein
CPT/HCPCS: 85246

== ENCOUNTER 2017-12-06 17:33 | Emergency (ER) | payer OTHER ==
[2017-12-06 18:34] LABS: HEMATOCRIT 44.7 % (42.0-52.0); HEMOGLOBIN 14.8 g/dl (13.5-17.5); MEAN CORPUSCULAR HEMOGLOBIN 28.6 pg (27.0-33.0); MEAN CORPUSCULAR HGB CONC 33.1 g/dl (32.0-36.5); MEAN CORPUSCULAR VOLUME 86.5 fl (80.0-96.0); PLATELET COUNT, AUTOMATED 212 10^3/uL (150-450); RED BLOOD COUNT 5.17 10^6/uL (4.30-6.10); RED CELL DISTRIBUTION WIDTH 11.7 % (11.5-14.5); WHITE BLOOD COUNT 6.1 10^3/uL (4.0-10.0)
[2017-12-06 18:57] LABS: INR 1.16
[2017-12-06 18:58] LABS: PARTIAL THROMBOPLASTIN TIME 27.6 SECONDS (25.4-37.6)
[2017-12-06 20:34] LABS: ALBUMIN 4.1 GM/DL (3.2-5.2); ALBUMIN/GLOBULIN RATIO 1.28 (1.00-1.93); ALKALINE PHOSPHATASE 50 U/L (45-117); ALT/SGPT 21 U/L (12-78); ANION GAP 8 MEQ/L (8-16); AST/SGOT 16 U/L (7-37); BILIRUBIN,TOTAL 0.9 MG/DL (0.2-1.0); BLOOD UREA NITROGEN 21 MG/DL (7-18); CALCIUM LEVEL 9.4 MG/DL (8.5-10.1); CARBON DIOXIDE LEVEL 27 MEQ/L (21-32); CHLORIDE LEVEL 105 MEQ/L (98-107); CREATININE FOR GFR 0.88 MG/DL (0.70-1.30); GLOMERULAR FILTRATION RATE > 60.0 (>60); GLUCOSE, FASTING 87 MG/DL (70-100); POTASSIUM SERUM 4.2 MEQ/L (3.5-5.1); SODIUM LEVEL 140 MEQ/L (136-145); TOTAL PROTEIN 7.3 GM/DL (6.4-8.2)
== END 2017-12-06 21:23 | disposition home or self-care (01) ==
LOC: M ED 17:33
DX: K92.1 Melena (principal); R31.9 Hematuria, unspecified; T45.515A Adverse effect of anticoagulants, initial encounter; Z86.711 Personal history of pulmonary embolism; Z79.01 Long term (current) use of anticoagulants; Z82.49 Family history of ischemic heart disease and other diseases of the circulatory system; Z79.899 Other long term (current) drug therapy
CPT/HCPCS: 80053

== ENCOUNTER 2018-01-02 08:33 | Emergency (ER) | payer OTHER ==
[2018-01-02 09:47] LABS: BASO % 0.3 % (0.0-1.0); EOS % 0.7 % (0.0-3.0); HEMATOCRIT 48.3 % (42.0-52.0); HEMOGLOBIN 16.3 g/dl (13.5-17.5); IMMATURE GRANULOCYTE % 0.3 % (0-3.0); LYMPH # 1.7 10^3/uL (1.5-4.5); LYMPH % 28.2 % (24.0-44.0); MEAN CORPUSCULAR HGB CONC 33.7 g/dl (32.0-36.5); MEAN CORPUSCULAR VOLUME 85.9 fl (80.0-96.0); MONO # 0.5 10^3/uL (0.0-0.8); NEUTROPHILS # 3.7 10^3/uL (1.8-7.7); NEUTROPHILS % 61.5 % (36.0-66.0); PLATELET COUNT, AUTOMATED 209 10^3/uL (150-450); RED BLOOD COUNT 5.62 10^6/uL (4.30-6.10); RED CELL DISTRIBUTION WIDTH 11.3 % (11.5-14.5)
[2018-01-02 11:04] LABS: ANION GAP 7 MEQ/L (8-16); BLOOD UREA NITROGEN 20 MG/DL (7-18); CALCIUM LEVEL 9.6 MG/DL (8.5-10.1); CARBON DIOXIDE LEVEL 26 MEQ/L (21-32); CHLORIDE LEVEL 106 MEQ/L (98-107); CPK CREATINE PHOSPHOKINASE 122 U/L (39-308); CREATININE FOR GFR 0.99 MG/DL (0.70-1.30); GLOMERULAR FILTRATION RATE > 60.0 (>60); GLUCOSE, FASTING 94 MG/DL (70-100); MB/CK RELATIVE INDEX 0.98 (< OR =4); POTASSIUM SERUM 4.2 MEQ/L (3.5-5.1); SODIUM LEVEL 139 MEQ/L (136-145); TROPONIN I < 0.02 NG/ML (< 0.10)
[2018-01-02] MEDS: NS 1,000 ML IV (12:26)
[2018-01-02 12:45] LABS: CPK CREATINE PHOSPHOKINASE 114 U/L (39-308); MB/CK RELATIVE INDEX 0.96 (< OR =4); TROPONIN I < 0.02 NG/ML (< 0.10)
== END 2018-01-02 13:22 | disposition home or self-care (01) ==
LOC: M ED 08:33
DX: E86.0 Dehydration (principal)
CPT/HCPCS: 93005